=== PATIENT | male | born 1980 | race Caucasian/White ===

== ENCOUNTER 2021-04-20 09:55 | Emergency (ER) | payer MEDICAID ==
[2021-04-20] MEDS ORDERED: Sodium Chloride 0.9% 10 ML Syringe FLUSH PRN (09:59)
[2021-04-20] MEDS ORDERED: Ondansetron 4 MG/2 ML SDV IVPUSH ONE (10:02)
[2021-04-20] MEDS ORDERED: Morphine 4 MG/ML VIAL IVPUSH ONE (10:02)
[2021-04-20] MEDS ORDERED: levETIRAcetam 1,500 MG in Sodium Chloride 0.9% 100 ML IV STA (10:04)
[2021-04-20] MEDS ORDERED: Sodium Chloride 0.9% 1,000 ML IV SCH ×2 (10:15→11:00)
[2021-04-20] MEDS ORDERED: Thiamine 100 MG in Sodium Chloride 0.9% 100 ML IV STA (10:17)
[2021-04-20] MEDS: LORazepam 2 MG/ML SDV IVPUSH STA ×2 (10:21→10:40)
[2021-04-20] MEDS ORDERED: Naloxone 0.4 MG/ML SDV IVPUSH STA (10:31)
[2021-04-20] MEDS ORDERED: Iopamidol 755 Mg/ML 100 ML Bottle IV ONE (10:48)
[2021-04-20] MEDS ORDERED: Ketorolac 30 MG/ML SDV IVPUSH STA (10:53)
[2021-04-20] MEDS ORDERED: Pantoprazole 40 MG Vial IVPUSH STA (11:05)
[2021-04-20] MEDS ORDERED: levETIRAcetam 1,500 MG in Sodium Chloride 0.9% 100 ML IV ONE (11:07)
[2021-04-20] MEDS ORDERED: Piperacillin/Tazobactam 4.5 GM in Sodium Chloride 0.9% 100 ML IV STA (12:16)
[2021-04-20] MEDS ORDERED: LORazepam 2 MG/ML SDV IVPUSH ONE (12:33)
[2021-04-20] MEDS ORDERED: Piperacillin/Tazobactam 4.5 GM in Sodium Chloride 0.9% 100 ML IV SCH (12:45)
[2021-04-20] MEDS ORDERED: Sodium Chloride 0.9% 1,000 ML IV ONE (13:23)
[2021-04-20] MEDS ORDERED: levETIRAcetam 1,500 MG in Sodium Chloride 0.9% 100 ML IV SCH (20:00)
== END 2021-04-20 14:59 ==
LOC: FB.ED 09:55
DX: R56.9 Unspecified convulsions (principal); K70.9 Alcoholic liver disease, unspecified; K86.1 Other chronic pancreatitis; J18.9 Pneumonia, unspecified organism; E11.9 Type 2 diabetes mellitus without complications; F19.90 Other psychoactive substance use, unspecified, uncomplicated; F10.10 Alcohol abuse, uncomplicated; Y90.5 Blood alcohol level of 100-119 mg/100 ml
CPT/HCPCS: 36415; 71045; 74177; 80053; 80307; 82150; 83690; 84484; 85025; 93005; 96365; 96367; 96368; 96375; 96376; 99284; 99285-25; C9113; J1885; J1953; J2060; J2270; J2310; J2405; J2543; J3411; J7030